=== PATIENT | male | born 1980 | race Caucasian/White ===

== ENCOUNTER 2023-07-01 11:16 | Emergency (ER) | payer OTHER, SELFPAY ==
[2023-07-01 11:22] VITALS: BP 145/92; PULSE 99; RESP 14; TEMP 37; O2SAT 97; BMI 34.4
--- NOTE | 2023-07-01 11:35 | DI.RAD.S_ITS ---
PROCEDURE: XR SHOULDER LT MIN 2V INDICATIONS: Sharp pain in left shoulder while twisting and turning. TECHNIQUE: 3 views of the shoulder were acquired. COMPARISON: None. FINDINGS: Bones: No fractures or dislocations. No suspicious bony lesions. Visualized ribs appear intact. Soft tissues: No suspicious soft tissue calcifications. IMPRESSION: No visualized acute fracture or dislocation. However, if clinical concern and/or pain persist, short interval imaging followup in 7-10 days is recommended, as occult injury cannot be definitively excluded. Dictated by: Akilah Maya M.D. on 07/01/2023 at 12:33 Approved by: Akilah Maya M.D. on 07/01/2023 at 12:33
--- NOTE | 2023-07-01 11:39 | DI.RAD.S_ITS ---
PROCEDURE: XR ELBOW LT MIN 3V INDICATIONS: Pain while been moving TECHNIQUE: 3 views of the elbow were acquired. COMPARISON: None. FINDINGS: Bones: No fractures or dislocations. No suspicious bony lesions. Soft tissues: No elbow joint effusion. No suspicious soft tissue calcifications. IMPRESSION: No visualized acute fracture or dislocation. However, if clinical concern and/or pain persist, short interval imaging followup in 7-10 days is recommended, as occult injury cannot be definitively excluded. Dictated by: Akilah Maya M.D. on 07/01/2023 at 12:33 Approved by: Akilah Maya M.D. on 07/01/2023 at 12:34
--- NOTE | 2023-07-01 12:20 | ED_ITS ---
<Statement entered by Rene Porras MD - 07/01/23 18:10> I was available for consultation during this patient's time in the ER but not consulted. My review of this chart is my first interaction with this patient's presentation. HPI - Extremity Problem General Chief complaint: Extremity Problem,Nontraumatic Stated complaint: shoulder pain Time Seen by Provider: 07/01/23 11:34 Source: patient Mode of arrival: Family Vehicle History of Present Illness HPI Narrative: 43-year-old male presents to the ED with left-sided shoulder and upper arm pain since October 2022. Patient states that he injured his shoulder and arm when working on his truck. Patient is a customer care associate. Patient states that the pain has been intermittently nagging him, however this weekend there was an acute exacerbation of the pain when he used his left arm to steer his truck. No new trauma. Patient has not been evaluated for this up until now. Patient denies numbness, tingling, weakness. Endorses full range of motion. Takes 600 mg of ibuprofen with minimal relief. Patient is right-hand dominant. Related Data Allergies Allergy/AdvReac Type Severity Reaction Status Date / Time No Known Drug Allergies Allergy Verified 07/01/23 11:26 Review of Systems Constitutional Constitutional: Denies chills, Denies fatigue, Denies fever(s), Denies frequent falls, Denies lethargy and Denies weakness Eyes Eyes: Denies change in vision, Denies eye discharge, Denies irritation and Denies loss of vision ENT Ears, Nose, Mouth, and Throat: Denies change in voice, Denies dizziness, Denies neck pain, Denies sore throat and Denies throat swelling Cardiovascular Cardiovascular: Denies chest pain, Denies irregular heart rhythm, Denies lightheadedness, Denies palpitations, Denies dyspnea, Denies dyspnea on exertion and Denies orthopnea Respiratory Respiratory: Denies cough, Denies dyspnea, Denies dyspnea on exertion and Denies wheezing Gastrointestinal Gastrointestinal: Denies abdominal pain, Denies change in bowel habits, Denies diarrhea, Denies nausea and Denies vomiting Musculoskeletal Musculoskeletal: Denies neck pain and Denies numbness Comments: Left shoulder and upper arm pain Integumentary/Breasts Skin/Breast: Denies pruritus, Denies erythema, Denies rash and Denies wounds Neurologic Neurologic: Denies behavioral changes, Denies confusion, Denies dizziness, Denies frequent falls, Denies loss of vision, Denies numbness and Denies weaknes s Psychiatric Psychiatric: Denies anxiety, Denies behavioral changes, Denies confusion, Denies depression, Denies homicidal ideation and Denies suicidal ideation Endocrine Endocrine: Denies fatigue, Denies flushing and Denies palpitations Hematologic/Lymphatic Hematologic/Lymphatic: Denies easy bruising Allergic/Immunologic Allergic/Immunologic: Denies urticaria, Denies throat swelling and Denies whee zing Patient History Social History Smoking Status: Current every day smoker Smoking Status: Current every day smoker tobacco type: vaping alcohol intake frequency: holidays/special occasions only Substance Use Type: does not use Exam Narrative Exam Narrative: Const General:?cooperative, healthy appearing and comfortable [facility] Head:?normal to inspection Ears:?hearing grossly normal bilaterally Nose:?external nose normal Face and sinus:?normal facial exam and sinuses nontender Mouth:?oral mucosae normal Throat:?posterior oropharynx normal Eyes General:?appearance normal, both eyes and all related structures Neck Neck:?normal visual inspection and no lymphadenopathy noted Resp Effort & Inspection:?normal respiratory effort Auscultation:?clear to auscultation bilaterally Cardio Rate:?regular rate Rhythm:?regular rhythm Musculoskeletal No bony tenderness to palpation. No bruising, swelling, deformities, erythema. There is full range of motion. Strength and sensation is intact. Patient is neurovascularly intact. Neuro General:?patient alert, patient awake and patient oriented x3 Initial Vital Signs Initial Vital Signs: Vital Signs Temperature 98.6 F 07/01/23 11:22 Pulse Rate 99 H 07/01/23 11:22 Respiratory Rate 14 07/01/23 11:22 Blood Pressure 145/92 H 07/01/23 11:22 Pulse Oximetry 97 07/01/23 11:22 Oxygen Delivery Method Room Air 07/01/23 11:22 Course Orders Ordered: ED Orders 07/01/23 11:35 XR shoulder LT min 2V Stat 07/01/23 11:39 XR elbow LT min 3V Stat Vital Signs Vital signs: Vital Signs - 8 hr 07/01/23 11:22 07/01/23 12:48 Temperature 98.6 F 98.2 F Pulse Rate 99 H 90 Respiratory Rate 14 18 Blood Pressure 145/92 H 140/93 H Pulse Oximetry 97 100 Oxygen Delivery Method Room Air Room Air MDM - Extremity (Nontraumatic) MDM Narrative Medical decision making narrative: 43-year-old male presents to the ED with left-sided shoulder and upper arm pain since October 2022. Patient's symptoms most consistent with a musculoskeletal sprain/strain. Unlikely fracture/dislocation. However will rule out with x- rays. X-rays without acute findings. Patient's symptoms likely musculoskeletal sprain/strain. Recommend follow-up with PCP for further evaluation and physical therapy referral. Recommend ibuprofen and Tylenol for symptom relief. Discussed appropriate dosages with patient. ED return precautions discussed with patient. Patient verbalized understanding. Medical records reviewed: Yes Discharge Plan Departure Patient Disposition: Home Clinical Impression: Left shoulder pain Qualifiers: Chronicity: unspecified Qualified Code(s): M25.512 - Pain in left shoulder Instructions: DI for Shoulder Pain Activity Restrictions/Additional Instructions: You were evaluated in the ED today for left-sided shoulder and upper arm pain. Your x-rays did not show any fractures or dislocations. Your symptoms are likely due to a musculoskeletal sprain/strain. You may take 800 mg of ibuprofen every 8 hours with food. You may also take 1000 mg of Tylenol every 8 hours for pain. Please follow-up with your he as soon as possible for further evaluation and physical therapy referral. Return to the ED if you have worsening symptoms, numbness, tingling, weakness. Stand Alone Forms: Patient Portal/API
[2023-07-01 12:48] VITALS: BP 140/93; PULSE 90; RESP 18; TEMP 36.8; O2SAT 100
== END 2023-07-01 12:49 | disposition home or self-care (01) ==
PROVIDERS: Emergency Provider Student in an Organized Health Care Education/Training Program
DX: M25.512 Pain in left shoulder (principal); Y99.0 Civilian activity done for income or pay
CPT/HCPCS: 73030; 73080; 99281; 99282